=== PATIENT | female | born 1980 | race Two or more races ===

== ENCOUNTER 2019-06-20 20:53 | Emergency (ER) | payer MEDICAID ==
[~2019-06-20] VITALS: Ht 160 cm; Wt 76.7 kg
--- NOTE | 2019-06-20 21:16 | NUR ---
URINE SUBMITTED TO LAB
--- NOTE | 2019-06-20 21:17 | NUR ---
BIBSELF WIH . AAOX4. NO RESP DISTRESS NOTED. AMBULATORY. C/O SEVERE HEADACHE. PT REPORTS THAT PAIN STARTED 3PM, SHARP ON BOTH SIDE OF HEAD. PT REPORTS HX OF MIGRAINE. TOOK NASAL SPRAY AND 2 OTHER PAIN MEDICATION. LIGHT AGGREVATES PT HEADACHE. MD WAS AT BEDSIDE FOR EVAL. ORDERS RECEIVED, NOTED AND CARRIED. URINE SENT FOR TEST. AWAITING TO BE ABLE TO GIVE MEIDCATION
[2019-06-20] MEDS ORDERED: PROCHLORPERAZINE EDISYLATE 10 MG/2 ML VIAL ONE (21:28)
[2019-06-20] MEDS ORDERED: KETOROLAC TROMETHAMINE INJ 60 MG/2 ML VIAL IM ONE ×2 (21:28→21:30)
[2019-06-20] MEDS ORDERED: PROCHLORPERAZINE EDISYLATE 10 MG/2 ML VIAL IM ONE (21:30)
[2019-06-20 22:19] VITALS: BP 120/75
--- NOTE | 2019-06-20 22:19 | NUR ---
Patient discharged to home in stable condition. Written and verbal after care instructions given. Patient verbalizes understanding of instruction. Pt ambulatory with a steady gait
== END 2019-06-20 22:19 | disposition home or self-care (01) ==
LOC: ER 20:59
DX: G43.909 Migraine, unspecified, not intractable, without status migrainosus (principal); Z60.2 Problems related to living alone
CPT/HCPCS: 84703; 96372; 99283; J1885; J0780

== ENCOUNTER 2022-02-06 13:40 | Emergency (ER) | payer MEDICAID ==
[~2022-02-06] VITALS: Ht 160 cm; Wt 72.6 kg
--- NOTE | 2022-02-06 14:20 | NUR ---
BIBSELF C/O BODY ACHES, FEVER, SORETHROAT. AMBULATORY, PLACED ON BED, AAOX4,; IN PAIN 04/11 PS
[2022-02-06] MEDS ORDERED: KETOROLAC TROMETHAMINE INJ 30 MG/ML VIAL IV ONE (15:00)
[2022-02-06] MEDS ORDERED: IV NS 0.9% 1,000 ML BAG IV ONE (15:00)
--- NOTE | 2022-02-06 15:00 | NUR ---
BLOOD DRAWN, SWAB FOR COVID, PCR, STREP SENT TO LAB
[2022-02-06 16:14] LABS: BASOPHILS # (AUTO) 0.1 K/uL (0.0-0.2); BASOPHILS % (AUTO) 0.7 % (0.0-2.0); EOSINOPHILS % (AUTO) 0.2 % (0.0-6.0); HEMATOCRIT 37 % (33-45); HEMOGLOBIN 12.6 g/dL (11.5-14.8); LYMPHOCYTES # (AUTO) 2.1 K/uL (0.8-4.8); LYMPHOCYTES % (AUTO) 14.4 % (20.0-44.0); MEAN CORPUSCULAR HGB CONC 34 g/dl (31.0-36.0); MEAN CORPUSCULAR VOLUME 96 fL (82-100); MONOCYTES # (AUTO) 1.5 K/uL (0.1-1.30); MONOCYTES % (AUTO) 10.4 % (2.0-12.0); NEUTROPHILS # (AUTO) 10.6 K/uL (1.8-8.9); NEUTROPHILS % (AUTO) 74.3 % (43.0-81.0); PLATELET COUNT (AUTO) 226 K/uL (150-450); RED BLOOD CELL COUNT(AUTO) 3.88 MIL/uL (4.0-5.2); WHITE BLOOD COUNT (AUTO) 14.3 K/uL (4.3-11.0)
[2022-02-06 16:17] LABS: BILIRUBIN,URINE NEGATIVE (NEGATIVE); COLOR,URINE YELLOW (YELLOW); LEUKOCYTE ESTERASE ,URINE SMALL (NEGATIVE); NITRITE, URINE NEGATIVE (NEGATIVE); PROTEIN,URINE 30 mg/dl (NEGATIVE); UGLUCOSE NEGATIVE (NEGATIVE); UROBILINOGEN,URINE 0.2 EU/dL (0.2)
[2022-02-06 16:20] LABS: CALCIUM, SERUM 8.6 mg/dL (8.5-10.1); CREATININE 0.6 mg/dL (0.6-1.3); POTASSIUM 4.2 mmol/L (3.5-5.1)
[2022-02-06 16:36] LABS: BACTERIA,URINE Few /HPF (None Seen); RBC,URINE 21-50 /HPF (0-2); SQUAMOUS EPITHELIAL CELL,UR Many /HPF (None Seen)
[2022-02-06] MEDS ORDERED: KETOROLAC TROMETHAMINE 15 MG/ML VIAL ONE (17:09)
[2022-02-06] MEDS ORDERED: IBUP-1957 PO (18:10)
[2022-02-06] MEDS ORDERED: CEPH500C2 PO (18:10)
[2022-02-06] MEDS ORDERED: PENICILLIN G BENZATHINE 2.4 MMU/4 ML ML IM ONE (18:30)
--- NOTE | 2022-02-06 18:43 | NUR ---
IV removed. Catheter intact and site benign. Pressure and 4x4 applied to site. No bleeding noted.Patient discharged to home in stable condition. Written and verbal after care instructions given. Patient verbalizes understanding of instruction.
[2022-02-06 18:46] VITALS: BP 105/70
== END 2022-02-06 18:40 | disposition home or self-care (01) ==
LOC: ER 13:46
DX: J02.9 Acute pharyngitis, unspecified (principal); Z20.822 Contact with and (suspected) exposure to COVID-19; N39.0 Urinary tract infection, site not specified
CPT/HCPCS: 36415; 76856; 80048; 81001; 84703; 85025; 87070; 87077; 87086; 87804; 87880; 96361; 96374; 99284; C9803; J1885; J7030; U0003; 86403-TC